=== PATIENT | female | born 1995 | race Caucasian/White ===

== ENCOUNTER 2019-09-12 22:03 | Emergency (ER) | payer OTHER ==
[~2019-09-12] VITALS: Ht 165.1 cm; Wt 111.6 kg
[2019-09-12 22:17] VITALS: Ht 165.1 cm; Wt 111.6 kg
[2019-09-13 00:39] VITALS: BP 147/86
== END 2019-09-12 23:50 | disposition home or self-care (01) ==
LOC: ED 22:03
DX: J06.9 Acute upper respiratory infection, unspecified (principal); R19.7 Diarrhea, unspecified; R11.2 Nausea with vomiting, unspecified; Z88.0 Allergy status to penicillin
CPT/HCPCS: 87804